=== PATIENT | male | born 1965 | race Caucasian/White ===

== ENCOUNTER 2019-02-17 18:36 | Emergency (ER) | payer SELFPAY ==
[~2019-02-17] VITALS: Ht 170.1 cm; Wt 65.8 kg
[~2019-02-17 18:36] MED LIST: CLARITIN10 MG PO; MEDROL DOSEPAK4 MG PO
== END 2019-02-17 21:00 | disposition home or self-care (01) ==
LOC: ED 18:36
DX: S01.421A Laceration with foreign body of right cheek and temporomandibular area, initial encounter (principal); Z91.040 Latex allergy status; W18.39XA Other fall on same level, initial encounter; Y93.89 Activity, other specified; Y92.89 Other specified places as the place of occurrence of the external cause; Y99.8 Other external cause status

== ENCOUNTER → 2020-04-11 | Outpatient (CLI) | payer OTHER | END | disposition home or self-care (01) | LOC: COVID19 12:26 | PROVIDERS: ATTEND Internal Medicine | DX: Z20.822 Contact with and (suspected) exposure to COVID-19 (principal) ==

== ENCOUNTER 2020-08-03 09:28 | Inpatient (IN) | payer OTHER ==
[~2020-08-03] VITALS: Ht 170.1 cm; Wt 67.6 kg
[2020-08-03 09:35] VITALS: BP 187/105
[2020-08-03 10:11] LABS: BASO % 0.4 % (0.0-1.0); EOS # 0.1 10*3/uL (0.0-0.4); EOS % 0.5 % (1.0-4.0); LYMPH # 1.1 10*3/uL (1.3-4.4); LYMPH % 9.9 % (27.0-41.0); MEAN CELL VOLUME 90.9 fl (80.0-94.0); MEAN CORPUSCULAR HGB 30.7 pg (27.0-31.0); MEAN CORPUSCULAR HGB CONC 33.8 g/dl (33.0-37.0); MEAN PLATELET VOLUME 10.8 fl (9.6-12.3); MONO # 0.7 10*3/uL (0.1-1.0); NEUT # 9.1 10*3/uL (2.3-7.9); NEUT % 82.9 % (47.0-73.0); PLATELET COUNT AUTOMATED 265 10*3/uL (130-400); RED BLOOD COUNT 5.28 10*6/uL (4.50-5.90); RED CELL DISTRI WIDTH 13.4 % (0-14.5); WHITE BLOOD COUNT 10.9 10*3/uL (4.8-10.8)
[2020-08-03 10:27] LABS: ALBUMIN 3.9 gm/dl (3.1-4.5); ALKALINE PHOSPHATASE 96 U/L (45-117); BUN 8 mg/dl (7-24); CHLORIDE 102 mmol/L (98-107); CREATININE 0.88 mg/dL (0.70-1.30); ETHYL ALCOHOL < 3.0 mg/dl (<3); POTASSIUM 3.7 mmol/L (3.5-5.1); SGOT/AST 28 IU/L (3-35); SGPT/ALT 41 U/L (12-78); SODIUM 132 mmol/L (136-145); TOTAL PROTEIN 8.6 gm/dL (6.4-8.2)
[2020-08-03 13:45] VITALS: BP 174/92
[2020-08-03 18:00] VITALS: BP 154/82
[2020-08-03 20:00] VITALS: BP 165/106
[2020-08-04] VITALS: BP 170/100
[2020-08-04 04:00] VITALS: BP 158/96
[2020-08-04 06:29] LABS: BASO % 0.3 % (0.0-1.0); EOS # 0.1 10*3/uL (0.0-0.4); EOS % 0.9 % (1.0-4.0); HEMATOCRIT 46.8 % (42.0-52.0); LYMPH # 1.8 10*3/uL (1.3-4.4); LYMPH % 13.4 % (27.0-41.0); MEAN CELL VOLUME 91.4 fl (80.0-94.0); MEAN CORPUSCULAR HGB 30.7 pg (27.0-31.0); MEAN CORPUSCULAR HGB CONC 33.5 g/dl (33.0-37.0); MEAN PLATELET VOLUME 10.7 fl (9.6-12.3); MONO # 0.9 10*3/uL (0.1-1.0); MONO % 6.4 % (3.0-9.0); NEUT # 10.8 10*3/uL (2.3-7.9); NEUT % 78.6 % (47.0-73.0); PLATELET COUNT AUTOMATED 252 10*3/uL (130-400); RED BLOOD COUNT 5.12 10*6/uL (4.50-5.90); RED CELL DISTRI WIDTH 13.6 % (0-14.5); WHITE BLOOD COUNT 13.7 10*3/uL (4.8-10.8)
[2020-08-04 07:25] LABS: CHLORIDE 104 mmol/L (98-107); POTASSIUM 3.7 mmol/L (3.5-5.1); SODIUM 135 mmol/L (136-145)
[2020-08-04 07:37] LABS: ALBUMIN 3.2 gm/dl (3.1-4.5); ALKALINE PHOSPHATASE 79 U/L (45-117); BUN 14 mg/dl (7-24); CHOLESTEROL 141 mg/dL (<200); CREATININE 0.82 mg/dL (0.70-1.30); FREE T4 1.11 ng/dl (0.76-1.46); LDL CHOLESTEROL 73 mg/dL (9-159); SGOT/AST 20 IU/L (3-35); SGPT/ALT 30 U/L (12-78); TOTAL PROTEIN 7.3 gm/dL (6.4-8.2); TRIGLYCERIDES 68 mg/dl (<150)
[2020-08-04 08:00] VITALS: BP 180/110
[2020-08-04 08:10] LABS: VITAMIN D, 25-HYDROXY 29.3 ng/mL (30-100)
[2020-08-04 16:00] VITALS: BP 150/98
[2020-08-04 20:00] VITALS: BP 132/87
[2020-08-05 00:59] VITALS: BP 156/96
[2020-08-05 08:00] VITALS: BP 170/110
[2020-08-05 08:02] VITALS: BP 173/75
[2020-08-05] MEDS ORDERED: LISINOPRIL10 M1 PO (11:16)
== END 2020-08-05 11:40 | disposition home or self-care (01) | DRG 433 ==
LOC: ED 09:28 → 4E 09:59 → EDHOLD 09:59 → 4E 10:25
PROVIDERS: Emergency Medicine; Registered Nurse; ADMIT Student in an Organized Health Care Education/Training Program; ATTEND Student in an Organized Health Care Education/Training Program
DX: K70.30 Alcoholic cirrhosis of liver without ascites (principal); E87.1 Hypo-osmolality and hyponatremia; F10.239 Alcohol dependence with withdrawal, unspecified; Z90.49 Acquired absence of other specified parts of digestive tract; Z87.891 Personal history of nicotine dependence